=== PATIENT | male | born 1945 | race Caucasian/White ===

== ENCOUNTER 2019-06-14 01:10 | Emergency (ER) | payer OTHER ==
[2019-06-14 01:39] VITALS: BP 156/91; PULSE 84; TEMP 98.3; BMI 26.6
--- NOTE | 2019-06-14 01:46 | PDOC ---
History of Present Illness - General Chief Complaint: Edema Stated Complaint: SWOLLEN TESTICLE, S/P HERNIA SURGERY Time Seen by Provider: 06/14/19 01:46 Past History - Past Medical History Allergies/Adverse Reactions: Allergies Allergy/AdvReac Type Severity Reaction Status Date / Time No Known Allergies Allergy Verified 06/10/14 09:28 Home Medications: Ambulatory Orders Omeprazole 40 mg PO DAILY 06/14/19 Oxycodone HCl/Acetaminophen [Percocet 5/325 -] 2 tab PO Q8H #18 tablet MDD 6 01/26 Simvastatin 10 mg PO DAILY 06/14/19 Kidney Stones: Yes - Psycho Social/Smoking Cessation Hx Smoking History: Never smoked Hx Alcohol Use: No Drug/Substance Use Hx: No Substance Use Type: None *Physical Exam - Vital Signs Last Vital Signs Temp Pulse Resp BP Pulse Ox 98.3 F 84 18 156/91 96 06/14/19 01:37 06/14/19 01:37 06/14/19 01:37 06/14/19 01:37 06/14/19 01:37 ED Treatment Course - LABORATORY CBC & Chemistry Diagram: 06/14/19 02:45 06/14/19 02:45 Medical Decision Making - Medical Decision Making HPI: 74yo M with recent L. sided hernia repair on 06/11/19 presenting with inguinal swelling, bruising, and pain. Patient states he was discharged on the same day of his surgery and on the next day started seeing "brown" on his inguinal area. He has taken pain medication (hydromorphone? at 7pm) that he takes for his chronic back pain, but since the pain persisted, he came to this ED for evaluation. Patient states he did not go to [facility] where the surgery was performed because he resides closer to this hospital. Reports nausea and headache, but no vomiting. Last bowel movement was today and was a hard dark brown stool without blood. Has passed gas. No urinary symptoms. Denies fevers or chills. PCP: Dr. Hinds Surgeon: Misael Curry, and [phone] ROS: Constitutional: no fever, no chills HEENT: no throat pain, no dysphagia Cardiovascular: no chest pain, no palpitations Respiratory: no cough, no shortness of breath Gastrointestinal: +inguinal pain, +nausea Genitourinary: no dysuria, no hematuria Musculoskeletal: no myalgia, no arthralgia Skin: no rash, no itching Neurologic: no headache, no weakness PE: General: Awake, alert, and fully oriented, in no acute distress Head: No signs of trauma Eyes: EOMI, sclera anicteric ENT: Moist mucus membranes Neck: Normal ROM, supple Lungs: Lungs clear, Normal breath sounds Cardio: Regular rhythm, S1 and S2 present Abdomen: Soft, nondistended. Inguinal area with significant ecchymosis and tender to palpation surgical site is well-healing with mild erythema; no discharge or active bleeding Extremities: Normal range of motion, Distal pulses present SKIN: Warm, Dry, normal turgor Neurologic: Cranial nerves II through XII grossly intact. Normal speech ED Course/MDM: DDX including but not limited to mesh rupture, post-surgical infection, incarcerated bowel Labs CT Pelvis without contrast 06/14/19 01:46 CT as read by imaging publications manager: "FINDINGS: The pelvic small and large bowel are normal. There is no evidence of appendicitis. The urinary bladder is normal. The prostate gland has been removed. No pelvic free fluid is identified. There is no significant pelvic lymphadenopathy. There is a moderate to large amount of hemorrhage and minimal air in the left inguinal canal as well as diffuse scrotal edema. Mild left pelvic retroperitoneal air and edema is noted without hematoma or abscess. No discrete mesh is identified. IMPRESSION: Left inguinal canal hemorrhage with diffuse scrotal edema and mild left retroperitoneal edema and air" 06/14/19 04:08 CBC WBC 9.2 K/mm3 (4.0-10.0) 06/14/19 02:45 RBC 4.11 M/mm3 (4.00-5.60) 06/14/19 02:45 Hgb 12.4 GM/dL (11.7-16.9) 06/14/19 02:45 Hct 37.2 % (35.4-49) 06/14/19 02:45 MCV 90.7 fl (80-96) 06/14/19 02:45 MCH 30.1 pg (25.7-33.7) 06/14/19 02:45 MCHC 33.2 g/dl (32.0-35.9) 06/14/19 02:45 RDW 13.9 % (11.9-15.9) 06/14/19 02:45 Plt Count 193 K/MM3 (134-434) 06/14/19 02:45 MPV 8.9 fl (7.5-11.1) 06/14/19 02:45 Absolute Neuts (auto) 6.3 K/mm3 (1.5-8.0) 06/14/19 02:45 Neutrophils % 68.8 % (42.8-82.8) 06/14/19 02:45 Lymphocytes % 15.2 % (8-40) 06/14/19 02:45 Monocytes % 13.6 % (3.8-10.2) H 06/14/19 02:45 Eosinophils % 1.8 % (0-4.5) 06/14/19 02:45 Basophils % 0.6 % (0-2.0) 06/14/19 02:45 Nucleated RBC % 0 % (0-0) 06/14/19 02:45 No leukocytosis Normal H/H CMP Sodium 142 mmol/L (136-145) 06/14/19 02:45 Potassium 4.2 mmol/L (3.5-5.1) 06/14/19 02:45 Chloride 109 mmol/L (98-107) H 06/14/19 02:45 Carbon Dioxide 28 mmol/L (21-32) 06/14/19 02:45 Anion Gap 5 MMOL/L (8-16) L 06/14/19 02:45 BUN 18.2 mg/dL (7-18) H 06/14/19 02:45 Creatinine 1.1 mg/dL (0.55-1.3) 06/14/19 02:45 Est GFR (CKD-EPI)AfAm 76.78 06/14/19 02:45 Est GFR (CKD-EPI)NonAf 66.24 06/14/19 02:45 Random Glucose 99 mg/dL (74-106) 06/14/19 02:45 Calcium 8.7 mg/dL (8.5-10.1) 06/14/19 02:45 Total Bilirubin 0.7 mg/dL (0.2-1) 06/14/19 02:45 AST 35 U/L (15-37) 06/14/19 02:45 ALT 25 U/L (13-61) 06/14/19 02:45 Alkaline Phosphatase 61 U/L (45-117) 06/14/19 02:45 Total Protein 6.0 g/dl (6.4-8.2) L 06/14/19 02:45 Albumin 3.4 g/dl (3.4-5.0) 06/14/19 02:45 Electrolytes unremarkable Cr normal Patient's surgeon's answering service paged 06/14/19 04:14 Discussed case with surgeon's surgical PA who will contact the surgeon and call us back 06/14/19 04:[address] Curry. Patient is safe for discharge. He states the office will call the patient at 9am on Sunday to schedule follow-up. Requesting CD of the imaging. Upon telling him that patient did not get prescription for post-surgical pain, he recommended that we send percocet 1-2 tabs q4h. Called over to CT scan. CD will not be ready for another hour. 06/14/19 04:33 CD and Imaging publications manager report given to patient. Discharged with return precautions 06/14/19 06:26 Discharge - Discharge Information Problems reviewed: Yes Clinical Impression/Diagnosis: Pain at surgical site Condition: Stable Disposition: HOME - Additional Discharge Information Prescriptions: Oxycodone HCl/Acetaminophen [Percocet 5/325 -] 2 tab PO Q8H #18 tablet MDD 6 - Follow up/Referral Referrals: Rashad Hinds [Primary Care Provider] - - Patient Discharge Instructions Additional Instructions: You came to the emergency department with pain. We performed a CT scan of your pelvis and you were given a CD of it to show your surgeon. I discussed the findings with your surgeon. Follow-up with Dr. Curry on Sunday. His office will you at 9am on Sunday with instructions. If you do not hear from them, please call or go to Dr. Welch office before 4pm on Sunday. Prescription sent to your pharmacy for pain. Take as instructed. Medical attention is required if you have: fever or chills; accumulation of pus , pain or redness, red streaks, swelling in the area of your surgical site; chest pain which may feel like a crushing weight; rapid irregular heartbeat; shortness of breath; or any new or concerning symptoms. If you think you are having an emergency, call for emergency medical services or present to the emergency department right away - Post Discharge Activity
--- NOTE | 2019-06-14 01:56 | PDOC ---
Attending Attestation - Resident Resident Name: AngellaBeverly - ED Attending Attestation I have performed the following: I have examined & evaluated the patient, The case was reviewed & discussed with the resident, I agree w/resident's findings & plan - HPI HPI: 06/14/19 02:24 Pt comes with left testicle swelling; as large as a grapefruit; he just had hernia repair surgery at [facility] with Dr. MARILEE Curry - Physicial Exam PE: 06/14/19 02:26 Pt has left testicle swelling; hematoma/purple bruising of his testcles and penis and swelling of his foreskin. I cannot appreciate bowel sounds in his testicle; pt may have edema and hematoma there We will getting CT scan of the pelvis to r/o mesh rupture and bowels in the testicle. - Medical Decision Making 06/14/19 02:28 Pt will have labs to check CBC and INR. 06/14/19 03:38 Labs are normal; INR is slightly elevated at 1.56 06/14/19 04:59 Patient Name: JENNIFER LUBIN THIS IS A PRELIMINARY REPORT FROM [facility] DATE OF SERVICE: 2019-06-14 03:07:02 IMAGES: [id number] EXAM: PELVIS CT WITHOUT CONTRAST HISTORY: Recent repair. Rule out mesh rupture COMPARISON: None. FINDINGS: The pelvic small and large bowel are normal. There is no evidence of appendicitis. The urinary bladder is normal. The prostate gland has been removed. No pelvic free fluid is identified. There is no significant pelvic lymphadenopathy. There is a moderate to large amount of hemorrhage and minimal air in the left inguinal canal as well as diffuse scrotal edema. Mild left pelvic retroperitoneal air and edema is noted without hematoma or abscess. No discrete mesh is identified. IMPRESSION: Left inguinal canal hemorrhage with diffuse scrotal edema and mild left retroperitoneal edema and air. 06/14/19 05:10 We spoke to the surgeron and surg PA at [facility]; they will follow with the patient on Sunday in the office. Pt should follow at [facility] sooner if he has worsening pain or fever or vomiting 06/14/19 06:36 I checked ISTOP and pt was never given a prescription of narcotics; he will be given an rx for percocet. He will follow with his surgeon on Sunday.
[2019-06-14 02:48] LABS: BASO % 0.6 % (0-2.0); EOS % 1.8 % (0-4.5); HEMATOCRIT 37.2 % (35.4-49); HEMOGLOBIN 12.4 GM/dL (11.7-16.9); LYMPH % 15.2 % (8-40); MCH 30.1 pg (25.7-33.7); MCHC 33.2 g/dl (32.0-35.9); MEAN CELL VOLUME 90.7 fl (80-96); MEAN PLT VOLUME 8.9 fl (7.5-11.1); MONO % 13.6 % (3.8-10.2); NEUT % 68.8 % (42.8-82.8); PLATELET COUNT 193 K/MM3 (134-434); RBC 4.11 M/mm3 (4.00-5.60); RDW 13.9 % (11.9-15.9); WHITE BLOOD COUNT 9.2 K/mm3 (4.0-10.0)
[2019-06-14 03:15] LABS: ALBUMIN 3.4 g/dl (3.4-5.0); BILIRUBIN,TOTAL 0.7 mg/dL (0.2-1); BLOOD UREA NITROGEN 18.2 mg/dL (7-18); CALCIUM 8.7 mg/dL (8.5-10.1); CREATININE 1.1 mg/dL (0.55-1.3); POTASSIUM 4.2 mmol/L (3.5-5.1)
[2019-06-14 03:23] LABS: INR 1.56 (0.83-1.09); PROTHROMBIN TIME (PATIENT) 18.5 SEC (9.7-13.0)
== END 2019-06-14 06:01 | disposition home or self-care (01) ==
LOC: JER 01:10
DX: G89.18 Other acute postprocedural pain (principal); Z98.890 Other specified postprocedural states; Z90.79 Acquired absence of other genital organ(s)
CPT/HCPCS: 36415; 72192-TC; 80053; 85025; 85610; 85730; 99284-25